=== PATIENT | female | born 1975 | race Caucasian/White ===

== ENCOUNTER 2017-01-29 16:52 | Emergency (ER) | payer SELFPAY ==
[~2017-01-29] VITALS: Ht 165.1 cm; Wt 78.6 kg
[~2017-01-29 16:52] MED LIST: CIPR750T PO; ESCI10TA PO; LORA1TAB PO; METR500T PO; OXYC1TAB7 PO; TRAZ150T68 PO
[2017-01-29 16:54] VITALS: BP 128/84
[2017-01-29] MEDS ORDERED: ALBUTEROL SULFATE 2.5 MG/3 ML NPPB ONE (17:30)
[2017-01-29] MEDS ORDERED: ALBUTEROL SULFATE 2.5 MG/3 ML ONE (17:47)
== END 2017-01-29 18:19 | disposition home or self-care (01) ==
LOC: ED 18:13
DX: J20.9 Acute bronchitis, unspecified (principal); J00 Acute nasopharyngitis [common cold]
CPT/HCPCS: 71020; 93005; 94640; 99284; J7613

== ENCOUNTER 2017-11-29 10:20 | Emergency (ER) | payer MEDICAID, OTHER ==
[~2017-11-29] VITALS: Ht 165.1 cm; Wt 82.0 kg
[~2017-11-29 10:20] MED LIST changes: +CLON-364 PO; +TRAZ150T62 PO; -TRAZ150T68 PO
[2017-11-29] MEDS ORDERED: DEXAMETHASONE 4 MG TABLET PO ONE (11:00)
[2017-11-29] MEDS ORDERED: DEXAMETHASONE 4 MG TABLET ONE (11:10)
[2017-11-29 11:14] VITALS: BP 122/88
== END 2017-11-29 11:40 | disposition home or self-care (01) ==
LOC: ED 11:30
DX: R50.9 Fever, unspecified (principal)
CPT/HCPCS: 87081; 87147; 87880; 99284

== ENCOUNTER 2018-11-19 11:00 | Emergency (ER) | payer SELFPAY ==
[~2018-11-19] VITALS: Ht 165.1 cm; Wt 84.2 kg
[~2018-11-19 11:00] MED LIST changes: -CLON-364 PO; +CLON0.5T11 PO
[2018-11-19 11:42] VITALS: BP 124/83
--- NOTE | 2018-11-19 12:00 | NUR ---
PT HERE FOR RASH THROUGHOUT BODY. PT DENIES ANY RECENT EXPOSURE TO ALLERGENS. PCP THINKS IT MAY BE A FUNGAL. PT REPORTS TAKING MEDICATIONS PERSCRIBED.
[2018-11-19 13:03] LABS: ALBUMIN 3.6 g/dL (3.4-5.0)
--- NOTE | 2018-11-19 13:04 | NUR ---
AWAITING LABS AT THIS TIME.
[2018-11-19 13:05] LABS: BILIRUBIN, DIRECT 0.2 mg/dL (0.1-0.2); BILIRUBIN,INDIRECT 0.5 mg/dL (0.0-2.0); BILIRUBIN,TOTAL 0.7 mg/dL (0.2-1.0); TOTAL PROTEIN 7.4 g/dL (6.4-8.2)
--- NOTE | 2018-11-19 13:25 | NUR ---
Patient/Caregiver given discharge instructions and they have confirmed that they understand the instructions. Patient ambulatory with steady gait.
== END 2018-11-19 13:27 | disposition home or self-care (01) ==
LOC: ED 13:11
DX: L20.84 Intrinsic (allergic) eczema (principal)
CPT/HCPCS: 36415; 80076; 99283; Q0177

== ENCOUNTER 2019-10-17 11:45 | Emergency (ER) | payer SELFPAY ==
[~2019-10-17] VITALS: Ht 167.6 cm; Wt 86.3 kg
[2019-10-17 13:41] LABS: MICROSCOPIC NOT IND
[2019-10-17 13:53] LABS: CULTURE INDICATED? NO
--- NOTE | 2019-10-17 14:43 | NUR ---
PT CAME CO OF RUQ ABD TENDERNESS AND RIGHT AND LEFT FLANK PAIN. PT TOOK ALEVE THIS MORNING AND IT HASNT HELPED PAIN LEVEL. URINE SENT. BLOOD DRAWN. AWAITING CT. ACCOMPANIED BY SON WHO IS PREFFERED INSPECTOR PAWNSHOP DETAIL. NO NEEDS AT THIS TIME
[2019-10-17 14:49] LABS: BASOPHILS # (AUTO) 0.03 x10^3/uL (0-0.1); BASOPHILS % (AUTO) 1 % (0-1); EOSINOPHILS # (AUTO) 0.07 x10^3/uL (0-0.4); EOSINOPHILS % (AUTO) 2 % (1-7); LYMPHOCYTES # (AUTO) 1.68 x10^3/uL (1-3.4); LYMPHOCYTES % (AUTO) 42 % (22-44); MD NO; MEAN CORPUSCULAR HEMOGLOBIN 30.3 pg (27.0-34.8); MEAN CORPUSCULAR HGB CONC 33.1 g/dL (32.4-35.8); MEAN CORPUSCULAR VOLUME 91.3 fL (80-100); MEAN PLATELET VOLUME 9.5 fL (7.4-10.4); MONOCYTES # (AUTO) 0.73 x10^3/uL (0.2-0.8); MONOCYTES % (AUTO) 19 % (2-9); NEUTROPHILS # (AUTO) 1.45 x10^3/uL (1.8-6.8); NEUTROPHILS % (AUTO) 37 % (42-75); PLATELET COUNT 174 x10^3/uL (130-400); RED BLOOD COUNT 4.83 x10^6/uL (3.82-5.3); RED CELL DISTRIBUTION WIDTH 14.6 % (9.6-15.2)
[2019-10-17] MEDS ORDERED: ONDANSETRON 2MG/ML, 2ML IVPush ONE (15:00)
[2019-10-17] MEDS ORDERED: MORPHINE SULFATE 4 MG/ML, 1ML IVPush ONE (15:00)
[2019-10-17 15:02] LABS: ALANINE AMINOTRANSFERASE 60 U/L (12-78); ALBUMIN 3.6 g/dL (3.4-5.0); ANION GAP 8 mmol/L (5-15); CALCIUM 8.7 mg/dL (8.5-10.1); CHLORIDE 109 mmol/L (98-107); CREATININE 0.92 mg/dL (0.55-1.02)
[2019-10-17 15:04] LABS: ALKALINE PHOSPHATASE 87 U/L (45-117); BILIRUBIN,TOTAL 0.6 mg/dL (0.2-1.0); TOTAL PROTEIN 7.5 g/dL (6.4-8.2)
[2019-10-17] MEDS ORDERED: MORPHINE SULFATE 4 MG/ML, 1ML ONE (15:07)
[2019-10-17] MEDS ORDERED: ONDANSETRON 2MG/ML, 2ML ONE (15:08)
[2019-10-17] MEDS ORDERED: MAALOX/HYOSCYAMINE/LIDOCAINE 45 ML BTL ONE (15:11)
[2019-10-17] MEDS ORDERED: MAALOX/HYOSCYAMINE/LIDOCAINE 45 ML BTL PO ONE (15:30)
--- NOTE | 2019-10-17 15:39 | NUR ---
PT IN CT
[2019-10-17] MEDS ORDERED: OMNIPAQUE 350 MG/ML, 100ML BOTTLE ONE (15:47)
[2019-10-17 16:59] VITALS: BP 133/74
== END 2019-10-17 17:02 | disposition home or self-care (01) ==
LOC: ED 16:35
DX: K26.3 Acute duodenal ulcer without hemorrhage or perforation (principal); R11.2 Nausea with vomiting, unspecified
CPT/HCPCS: 36415; 74177; 80053; 81003; 83690; 85025; 96374; 96375; 99284; J2270; J2405; Q9967

== ENCOUNTER 2019-10-31 16:20 | Emergency (ER) | payer SELFPAY ==
[~2019-10-31] VITALS: Ht 160 cm; Wt 87.6 kg
--- NOTE | 2019-10-31 17:00 | NUR ---
patient arrives to er with cold flu like symptoms for two weeks she went to see an MD her primary and got a zpack and benzonatate caps , her dr fried. patient took full course but still feeling cold and flu like symptoms
[2019-10-31] MEDS ORDERED: DEXAMETHASONE 4 MG TABLET ONE (17:20)
[2019-10-31] MEDS ORDERED: DEXAMETHASONE 4 MG TABLET PO ONE (18:00)
[2019-10-31 18:25] VITALS: BP 135/78
== END 2019-10-31 18:27 | disposition home or self-care (01) ==
LOC: ED 17:52
DX: J06.9 Acute upper respiratory infection, unspecified (principal); Z90.49 Acquired absence of other specified parts of digestive tract
CPT/HCPCS: 71046; 99283

== ENCOUNTER 2020-04-22 09:39 | Emergency (ER) | payer SELFPAY ==
[~2020-04-22] VITALS: Ht 157.5 cm; Wt 79.7 kg
[~2020-04-22 09:39] MED LIST changes: +CLON-364 PO; -CLON0.5T11 PO
--- NOTE | 2020-04-22 10:10 | NUR ---
COATING MANAGER: PT FROM LOBBY TO ROOM AT THIS TIME.
--- NOTE | 2020-04-22 10:25 | NUR ---
Assumed care of patient. C/O cough and sore throat. NAD. SO at bedside. Placed on pulse ox and NIBP. Will continue to monitor.
[2020-04-22] MEDS ORDERED: BENZONATATE 100 MG CAPSULE PO ONE (10:30)
[2020-04-22] MEDS ORDERED: KETOROLAC 30 MG/1 ML ONE (10:30)
[2020-04-22] MEDS ORDERED: KETOROLAC 30 MG/1 ML IM ONE (10:30)
[2020-04-22] MEDS ORDERED: BENZONATATE 100 MG CAPSULE ONE (10:30)
[2020-04-22 10:40] LABS: BASOPHILS # (AUTO) 0.02 x10^3/uL (0-0.1); BASOPHILS % (AUTO) 0 % (0-1); EOSINOPHILS # (AUTO) 0.15 x10^3/uL (0-0.4); EOSINOPHILS % (AUTO) 3 % (1-7); LYMPHOCYTES # (AUTO) 2.04 x10^3/uL (1-3.4); LYMPHOCYTES % (AUTO) 39 % (22-44); MD NO; MEAN CORPUSCULAR HEMOGLOBIN 30.5 pg (27.0-34.8); MEAN CORPUSCULAR HGB CONC 33.2 g/dL (32.4-35.8); MEAN CORPUSCULAR VOLUME 91.7 fL (80-100); MEAN PLATELET VOLUME 9.7 fL (7.4-10.4); MONOCYTES # (AUTO) 0.32 x10^3/uL (0.2-0.8); MONOCYTES % (AUTO) 6 % (2-9); NEUTROPHILS # (AUTO) 2.73 x10^3/uL (1.8-6.8); NEUTROPHILS % (AUTO) 52 % (42-75); PLATELET COUNT 193 x10^3/uL (130-400); RED BLOOD COUNT 5.06 x10^6/uL (3.82-5.3); RED CELL DISTRIBUTION WIDTH 14.1 % (9.6-15.2)
[2020-04-22 11:16] LABS: ALANINE AMINOTRANSFERASE 44 U/L (12-78); ANION GAP 6 mmol/L (5-15); CALCIUM 8.6 mg/dL (8.5-10.1); CHLORIDE 110 mmol/L (98-107); CREATININE 0.69 mg/dL (0.55-1.02)
[2020-04-22 11:20] LABS: ALKALINE PHOSPHATASE 99 U/L (45-117); BILIRUBIN,TOTAL 0.7 mg/dL (0.2-1.0); TOTAL PROTEIN 7.3 g/dL (6.4-8.2); TROPONIN I < 0.015 ng/mL (0.000-0.045)
[2020-04-22 11:49] VITALS: BP 137/79
--- NOTE | 2020-04-22 11:49 | NUR ---
Patient/Caregiver given discharge instructions and they have confirmed that they understand the instructions. Patient ambulatory with steady gait.
== END 2020-04-22 11:51 | disposition home or self-care (01) ==
LOC: ED 10:46
DX: U07.1 COVID-19 (principal); J30.2 Other seasonal allergic rhinitis; R07.89 Other chest pain; R05 Cough; M79.10 Myalgia, unspecified site
CPT/HCPCS: 36415; 71045; 80053; 84484; 85025; 87635; 93005; 96372; 99285; J1885

== ENCOUNTER 2020-04-27 23:09 | Emergency (ER) | payer SELFPAY ==
[~2020-04-27] VITALS: Ht 162.6 cm; Wt 80.0 kg
--- NOTE | 2020-04-27 23:28 | NUR ---
SOCIAL PROFESSIONALS AT THE BEDSIDE.
[2020-04-27] MEDS ORDERED: LORA-446 PO (23:36)
--- NOTE | 2020-04-27 23:36 | NUR ---
THIS PT PRESENTS TO THE ER VIA EMS. PER EMS PT HAS BEEN TO THE HOSPITAL 10X IN THE PAST MONTH AND PT HAD A NEGATIVE WORKUP LAST VISIT, 4 DAYS AGO. PT STATES SHE TOOK CLORAZAPAM APPROX 1 HOUR BEFORE ARRIVAL. PT STATES SHE'S BEEN HAVING CHEST PAIN FOR 4 DAYS THAT HURTS TO HER BACK. PT ALSO COMPLAINING OF TINGLING IN FACE AND BOTH ARMS. CARPLE-PEDAL SPASM NOTED IN RIGHT ARM. PT STATES SHE ALSO FEELS VERY WEAK, PT WAS ABLE TO WALK FROM EMS GURNEY TO BED. PT STATES SHE'S HAD A DRY COUGH FOR APPROX 1 MONTH. IS AT BEDSIDE, STATES PT HAS ANXIETY. PT ALSO STATES SHE HAS ANXIETY BUT MAKES NO STATEMENTS ABOUT S/SX BEING RELATED. ALL INFORMATION OBTAINED USING TRANSLATION SERVICES. PT LAYING IN BED, CONNECTED TO CARDIAC, O2 AND BP MONITORS. BEDRAILS UP, CALL LIGHT WITHIN REACH. AT BEDSIDE.
[2020-04-28] MEDS ORDERED: LORazepam 1MG TABLET ONE (00:23)
[2020-04-28] MEDS ORDERED: ALBUTEROL/IPRATROPIUM 2.5MG/0.5MG, 3 ML ONE (00:23)
[2020-04-28] MEDS ORDERED: DEXAMETHASONE 4 MG TABLET ONE (00:24)
[2020-04-28] MEDS ORDERED: ALBUTEROL/IPRATROPIUM 2.5MG/0.5MG, 3 ML NPPB ONE (00:30)
[2020-04-28] MEDS ORDERED: LORazepam 1MG TABLET PO ONE (00:30)
[2020-04-28] MEDS ORDERED: DEXAMETHASONE 4 MG TABLET PO ONE (00:30)
[2020-04-28 01:30] VITALS: BP 115/66
--- NOTE | 2020-04-28 01:31 | NUR ---
BREAK RN: PT. RESTING ON GURNEY WITH NO VISIBLE DISTRESS NOTED. VS UPDATED. PT. TO BE D/C; AWAITING MD TO SPEAK WITH HER ABOUT ED FINDINGS AND POC.
== END 2020-04-28 01:52 | disposition home or self-care (01) ==
LOC: ED 04-28 00:55
DX: U07.1 COVID-19 (principal); R06.00 Dyspnea, unspecified; B34.9 Viral infection, unspecified; R94.31 Abnormal electrocardiogram [ECG] [EKG]; H53.8 Other visual disturbances; Z90.49 Acquired absence of other specified parts of digestive tract
CPT/HCPCS: 71045; 93005; 94640; 99283; 99406

== ENCOUNTER 2020-05-11 14:05 | Emergency (ER) | payer OTHER ==
[~2020-05-11] VITALS: Ht 157.5 cm; Wt 79.3 kg
[~2020-05-11 14:05] MED LIST changes: +LORA-446 PO
[2020-05-11 14:39] LABS: BASOPHILS # (AUTO) 0.07 x10^3/uL (0-0.1); BASOPHILS % (AUTO) 1 % (0-1); EOSINOPHILS # (AUTO) 0.23 x10^3/uL (0-0.4); EOSINOPHILS % (AUTO) 3 % (1-7); LYMPHOCYTES # (AUTO) 2.25 x10^3/uL (1-3.4); LYMPHOCYTES % (AUTO) 33 % (22-44); MD NO; MEAN CORPUSCULAR HEMOGLOBIN 31.3 pg (27.0-34.8); MEAN CORPUSCULAR HGB CONC 34.1 g/dL (32.4-35.8); MEAN CORPUSCULAR VOLUME 91.7 fL (80-100); MEAN PLATELET VOLUME 9.8 fL (7.4-10.4); MONOCYTES # (AUTO) 0.32 x10^3/uL (0.2-0.8); MONOCYTES % (AUTO) 5 % (2-9); NEUTROPHILS # (AUTO) 3.88 x10^3/uL (1.8-6.8); NEUTROPHILS % (AUTO) 58 % (42-75); PLATELET COUNT 210 x10^3/uL (130-400); RED BLOOD COUNT 4.67 x10^6/uL (3.82-5.3); RED CELL DISTRIBUTION WIDTH 13.8 % (9.6-15.2)
[2020-05-11 14:52] LABS: ALANINE AMINOTRANSFERASE 16 U/L (12-78); ALBUMIN 3.4 g/dL (3.4-5.0); ANION GAP 6 mmol/L (5-15); CALCIUM 8.5 mg/dL (8.5-10.1); CHLORIDE 113 mmol/L (98-107)
[2020-05-11 14:57] LABS: ALKALINE PHOSPHATASE 103 U/L (45-117); BILIRUBIN,TOTAL 0.7 mg/dL (0.2-1.0); CREATININE 0.91 mg/dL (0.55-1.02); TROPONIN I < 0.015 ng/mL (0.000-0.045)
--- NOTE | 2020-05-11 15:12 | NUR ---
THIS IS A 44 YO F W/ C/O PERSISTENT COUGH AND BACK PAIN. PT REPORTS DX W/ COVID 25 DAYS AGO. HAS BEEN TAKING ABX W/ NO RELIEF. PT RESTING ON GURNEY W/ CALL LIGHT IN REACH AND SIDE RAILS UPX2. RESP EVEN AND UNLABORED, DAPHNIE.
[2020-05-11] MEDS ORDERED: SODIUM CHLORIDE FLUSH 10ML SYR IVF ONE (16:00)
--- NOTE | 2020-05-11 16:33 | NUR ---
THIS RN UNABLE TO START PIV AFTER 3 ATTEMPTS. ENEDINA RN TO USE US.
[2020-05-11] MEDS ORDERED: MORPHINE SULFATE 4 MG/ML, 1ML ONE ×2 (17:42→19:16)
[2020-05-11] MEDS ORDERED: MORPHINE SULFATE 4 MG/ML, 1ML IVPush PRN (18:00)
--- NOTE | 2020-05-11 18:02 | NUR ---
TELEPHONE CALL TO RAD REGARDING DELAY IN [facility]. PER BRYCE THEY WILL CLEAN ROOM AND SHE WILL BE NEXT.
[2020-05-11] MEDS ORDERED: OMNIPAQUE 350 MG/ML, 100ML BOTTLE ONE (19:06)
--- NOTE | 2020-05-11 19:06 | NUR ---
REPORT GIVEN TO DAMION GARG.
[2020-05-11 19:20] VITALS: BP 141/83
--- NOTE | 2020-05-11 19:20 | NUR ---
pt sobbing, reqesting pain meds for chest and back pain. pt medicated per emar.
--- NOTE | 2020-05-11 20:13 | NUR ---
SHAHRAM STATED IN BEDSIDE REPORT THAT SHE GAVE 4 MG MORPHINE BUT IN EMAR, NOT CHARTED GIVEN
== END 2020-05-11 20:29 | disposition home or self-care (01) ==
LOC: ED 15:12
DX: R07.2 Precordial pain (principal); J20.8 Acute bronchitis due to other specified organisms; B97.89 Other viral agents as the cause of diseases classified elsewhere; R94.31 Abnormal electrocardiogram [ECG] [EKG]
CPT/HCPCS: 36415; 71045; 71275; 80053; 83880; 84484; 85025; 93005; 96374; 99285; J2270; Q9967

== ENCOUNTER 2020-07-28 18:42 | Emergency (ER) | payer SELFPAY ==
[~2020-07-28] VITALS: Ht 167.6 cm; Wt 82.5 kg
--- NOTE | 2020-07-28 19:33 | NUR ---
first contact, ra sat 98%. swab done by erp, pcxr done. pt in nad, on cont pulse ox. call rosenthal in reach. aidet provided. will continue to monitor.
[2020-07-28 20:17] VITALS: BP 138/89
--- NOTE | 2020-07-28 20:46 | NUR ---
ALL INSTRUCT, COVID SHEET IN [place] AND RX TO PT. DETAILED INSTRUCT ON COVID AND RESP CARE GIVEN IN [place]. PT VERBALIZES UNDERSTANDING OF INSTRUCT. AND FU TO RETURN TO ER IF WORSE OR CONERNS.
== END 2020-07-28 21:03 | disposition home or self-care (01) ==
LOC: ED 20:42
DX: J02.9 Acute pharyngitis, unspecified (principal); Z20.828 Contact with and (suspected) exposure to other viral communicable diseases; R06.00 Dyspnea, unspecified; R05 Cough; Z90.49 Acquired absence of other specified parts of digestive tract
CPT/HCPCS: 36415; 71045; 87635; 99284

== ENCOUNTER 2020-08-02 21:23 | Emergency (ER) | payer SELFPAY ==
[~2020-08-02] VITALS: Ht 160 cm; Wt 83.9 kg
--- NOTE | 2020-08-02 22:00 | NUR ---
PT TO ROOM FROM LOBBY
--- NOTE | 2020-08-02 23:40 | NUR ---
RESULTS BACK FROM US. CHART UP FOR RECHECK
--- NOTE | 2020-08-02 23:51 | NUR ---
Danii larson in ED - 08/02/20 at 2352 by EDGAR Patient/Caregiver given discharge instructions and they have confirmed that they understand the instructions. Patient ambulatory with steady gait.
[2020-08-03 00:01] VITALS: BP 126/84
--- NOTE | 2020-08-03 00:17 | NUR ---
Patient/Caregiver given discharge instructions and they have confirmed that they understand the instructions. Patient ambulatory with steady gait.
== END 2020-08-03 00:18 | disposition home or self-care (01) ==
LOC: ED 22:20
DX: N63.0 Unspecified lump in unspecified breast (principal); Z90.49 Acquired absence of other specified parts of digestive tract
CPT/HCPCS: 76642; 99284

== ENCOUNTER 2020-12-03 23:55 | Emergency (ER) | payer SELFPAY ==
[~2020-12-03] VITALS: Ht 162.6 cm; Wt 77.0 kg
[~2020-12-03 23:55] MED LIST changes: -ESCI10TA PO; +ESCI10TA97 PO
--- NOTE | 2020-12-04 00:08 | NUR ---
Pt arrives via [facility] from home. Reports she ate seafood this morning and since has been nauseous and vomitting. [facility] reported that just with them she filled 3 emesis bags. Lao speaking only, hypo dipper present. Denies abd pain, non-tender to palpation. Pt to CT.
[2020-12-04] MEDS ORDERED: LORazepam 2 MG/ML, 1ML IVPush ONE (00:30)
[2020-12-04] MEDS ORDERED: SODIUM CHLORIDE 0.9% 1,000ML IVBOLUS ONE (00:30)
[2020-12-04] MEDS ORDERED: ONDANSETRON 2MG/ML, 2ML IVPush ONE (00:30)
[2020-12-04] MEDS ORDERED: ONDANSETRON 2MG/ML, 2ML ONE (01:08)
[2020-12-04] MEDS ORDERED: LORazepam 2 MG/ML, 1ML ONE (01:09)
--- NOTE | 2020-12-04 01:14 | NUR ---
IV started, labs drawn and sent. Medicated per eMAR.
[2020-12-04 01:17] LABS: BASOPHILS % (AUTO) 1 % (0-1); EOSINOPHILS % (AUTO) 1 % (1-7); LYMPHOCYTES % (AUTO) 21 % (22-44); MEAN CORPUSCULAR HEMOGLOBIN 30.4 pg (27.0-34.8); MEAN CORPUSCULAR HGB CONC 34.1 g/dL (32.4-35.8); MEAN PLATELET VOLUME 9.5 fL (7.4-10.4); MONOCYTES % (AUTO) 6 % (2-9); NEUTROPHILS % (AUTO) 71 % (42-75); PLATELET COUNT 196 x10^3/uL (130-400); RED BLOOD COUNT 4.62 x10^6/uL (3.82-5.3); RED CELL DISTRIBUTION WIDTH 13.8 % (9.6-15.2)
[2020-12-04 01:27] LABS: MD NO
[2020-12-04 01:34] LABS: ALANINE AMINOTRANSFERASE 28 U/L (12-78); ALBUMIN 3.6 g/dL (3.4-5.0); ANION GAP 9 mmol/L (5-15); CALCIUM 8.2 mg/dL (8.5-10.1); CHLORIDE 110 mmol/L (98-107); CREATININE 0.67 mg/dL (0.55-1.02)
[2020-12-04 01:36] LABS: ALKALINE PHOSPHATASE 103 U/L (45-117); BILIRUBIN,TOTAL 0.6 mg/dL (0.2-1.0); TOTAL PROTEIN 6.8 g/dL (6.4-8.2)
--- NOTE | 2020-12-04 01:56 | NUR ---
Pt ambulating to bathroom x1 person assist. UA collected and sent to lab.
--- NOTE | 2020-12-04 01:59 | NUR ---
Pt req. pain meds for headache, informing provider.
--- NOTE | 2020-12-04 02:21 | NUR ---
Provider and mobile home laborer at bedside.
[2020-12-04 02:23] LABS: HCG UR SG 1.005 (1.003-1.030)
[2020-12-04] MEDS ORDERED: KETOROLAC 30 MG/1 ML ONE (02:26)
[2020-12-04] MEDS ORDERED: MECLIZINE CHEWABLE 25 MG TAB ONE (02:26)
[2020-12-04 02:30] VITALS: BP 118/76
[2020-12-04] MEDS ORDERED: MECLIZINE CHEWABLE 25 MG TAB PO ONE (02:30)
[2020-12-04] MEDS ORDERED: KETOROLAC 30 MG/1 ML IVPush ONE (02:30)
--- NOTE | 2020-12-04 02:38 | NUR ---
Pt reports she feels better. IV removed, catheter intact, hemostasis achieved, dressing applied. Pt agrees with and understands discharge plan and instructions.
== END 2020-12-04 03:00 | disposition home or self-care (01) ==
LOC: ED 12-04 00:25
DX: H81.10 Benign paroxysmal vertigo, unspecified ear (principal); R51.9 Headache, unspecified; R11.2 Nausea with vomiting, unspecified; Z90.49 Acquired absence of other specified parts of digestive tract
CPT/HCPCS: 36415; 70450; 80053; 81025; 83690; 85025; 93005; 96361; 96374; 96375; 99285; J1885; J2060; J2405; J7030

== ENCOUNTER 2020-12-21 14:39 | Emergency (ER) | payer SELFPAY ==
[~2020-12-21] VITALS: Ht 160 cm; Wt 82.0 kg
[2020-12-21] MEDS ORDERED: DIAZEPAM 5 MG TABLET ONE (15:30)
[2020-12-21] MEDS ORDERED: DIAZEPAM 5 MG TABLET PO ONE (15:30)
[2020-12-21] MEDS ORDERED: ONDANSETRON ODT 4 MG PO ONE (15:30)
[2020-12-21] MEDS ORDERED: ONDANSETRON ODT 4 MG ONE (15:31)
--- NOTE | 2020-12-21 15:34 | NUR ---
PT MEDICATED PER EMAR. RESTING ON GUNREY W/ CALL LIGHT IN REACH, SIDE RAILS UPX2 AND FAMILY AT BEDSIDE. RESP EVEN AND UNLABORED, JACOBN.
--- NOTE | 2020-12-21 16:28 | NUR ---
AT BEDSIDE FOR RECHECK.
[2020-12-21 16:41] VITALS: BP 113/87
--- NOTE | 2020-12-21 16:50 | NUR ---
pt up to ambulate to bathroom, walked with steady gait and good balance, returned safely to bed. pt reports feeling better, denies need or discomfort at this time. pt in bed with rails up bilaterally and call light within reach. lights low in room for comfort, no signs or symptoms of acute dsitrss noted respirations even and unlabored
== END 2020-12-21 17:08 | disposition home or self-care (01) ==
LOC: ED 16:23
DX: R42 Dizziness and giddiness (principal); R51.9 Headache, unspecified; M54.2 Cervicalgia
CPT/HCPCS: 93005; 99283; Q0162